=== PATIENT | male | born 1985 | race Caucasian/White ===

== ENCOUNTER 2018-01-08 16:50 | Emergency (ER) | payer SELFPAY ==
[~2018-01-08] VITALS: Ht 177.8 cm; Wt 75.8 kg
[2018-01-08 16:56] VITALS: BP 123/71
== END 2018-01-08 18:07 | disposition home or self-care (01) ==
LOC: ED 17:37
DX: S29.011A Strain of muscle and tendon of front wall of thorax, initial encounter (principal); F17.200 Nicotine dependence, unspecified, uncomplicated; X58.XXXA Exposure to other specified factors, initial encounter; Y93.89 Activity, other specified; Y92.89 Other specified places as the place of occurrence of the external cause; Y99.8 Other external cause status
CPT/HCPCS: 99284